=== PATIENT | female | born 1975 | race Hispanic/Latino ===

== ENCOUNTER 2018-05-04 14:16 | Observation (INO) | payer OTHER ==
[~2018-05-04] VITALS: Ht 162.6 cm; Wt 105.7 kg
[~2018-05-04 14:16] MED LIST: HYDROCODON-ACE1 EA10
[2018-05-04 15:51] LABS: BASOPHILS % 0.7 % (0.0-1.0); EOSINOPHILS # (AUTO) 0.1 (0.0-0.4); EOSINOPHILS % 2.9 % (0.0-6.0); HEMATOCRIT 27.8 % (34.2-44.1); HEMOGLOBIN 8.2 g/dL (12.0-16.0); LYMPHOCYTES % 23.7 % (18.0-39.1); MEAN CORPUSCULAR HEMOGLOBIN 20.3 pg (28-32); MEAN CORPUSCULAR HGB CONC 29.5 g/dL (31-35); MEAN CORPUSCULAR VOLUME 68.8 fL (81-99); MONOCYTES # (AUTO) 0.6 (0.2-0.8); MONOCYTES % 14.8 % (4.4-11.3); NEUTROPHILS # (AUTO) 2.4 (2.1-6.9); NEUTROPHILS % 57.9 % (38.7-80.0); PLATELET COUNT 349 x10e3/uL (140-360); RED BLOOD COUNT 4.04 x10e6/uL (3.6-5.1); RED CELL DISTRIBUTION WIDTH 19.5 % (11.7-14.4)
[2018-05-04] MEDS ORDERED: SODIUM CHLORIDE 0.9% 250ML 250 ML IV ONE ×2 (16:00→16:45)
[2018-05-04] MEDS ORDERED: DIPHENHYDRAMINE HCL INJ 50 MG/ML VIAL IV PRN (16:45)
[2018-05-04] MEDS ORDERED: ACETAMINOPHEN 325 MG TAB PO PRN (16:45)
[2018-05-04] MEDS ORDERED: ONDANSETRON HCL INJ 2 MG/ML VIAL IV PRN (16:45)
[2018-05-04 18:18] VITALS: BP 149/67
[2018-05-04 20:00] VITALS: BP 149/88
[2018-05-04] MEDS ORDERED: SODIUM CHLORIDE 0.9% 250ML 250 ML ONE (21:17)
[2018-05-04] MEDS: MORPHINE SULFATE 2 MG/ML SYR IV PRN (22:01)
[2018-05-04 22:38] VITALS: BP 149/88
[2018-05-04 22:48] VITALS: BP 149/88
[2018-05-05] VITALS (7 sets, daily range): BP systolic 138–170; BP diastolic 66–90
[2018-05-05] MEDS: SODIUM CHLORIDE 0.9% 1000ML 1,000 ML IV SCH ×3 (02:26→23:14)
[2018-05-05 05:24] LABS: BASOPHILS % 0.7 % (0.0-1.0); EOSINOPHILS # (AUTO) 0.2 (0.0-0.4); EOSINOPHILS % 3.6 % (0.0-6.0); HEMATOCRIT 29.5 % (34.2-44.1); HEMOGLOBIN 9.1 g/dL (12.0-16.0); LYMPHOCYTES # (AUTO) 1.4 (1.0-3.2); LYMPHOCYTES % 31.8 % (18.0-39.1); MEAN CORPUSCULAR HEMOGLOBIN 21.3 pg (28-32); MEAN CORPUSCULAR HGB CONC 30.8 g/dL (31-35); MEAN CORPUSCULAR VOLUME 68.9 fL (81-99); MONOCYTES # (AUTO) 0.7 (0.2-0.8); MONOCYTES % 15.1 % (4.4-11.3); NEUTROPHILS # (AUTO) 2.2 (2.1-6.9); NEUTROPHILS % 48.6 % (38.7-80.0); PLATELET COUNT 283 x10e3/uL (140-360); RED BLOOD COUNT 4.28 x10e6/uL (3.6-5.1); RED CELL DISTRIBUTION WIDTH 19.6 % (11.7-14.4)
[2018-05-05 05:47] LABS: ALANINE AMINOTRANSFERASE 12 IU/L (0-55); ALBUMIN 3.5 g/dL (3.5-5.0); ALBUMIN/GLOBULIN RATIO 1.2 (0.8-2.0); ALKALINE PHOSPHATASE 51 IU/L (40-150); ANION GAP 9.9 mmol/L (8-16); BLOOD UREA NITROGEN 11 mg/dL (7-26); BUN/CREATININE RATIO 19 (6-25); CALCIUM 8.3 mg/dL (8.4-10.2); CARBON DIOXIDE 27 mmol/L (22-29); CHLORIDE 107 mmol/L (98-107); CREATININE, SERUM 0.59 mg/dL (0.57-1.11); EST GLOMERULAR FILTRATION RATE > 60 ML/MIN (60-); GLUCOSE 88 mg/dL (74-118); POTASSIUM 3.9 mmol/L (3.5-5.1); SODIUM 140 mmol/L (136-145)
[2018-05-05] MEDS ORDERED: ESTROGENS CONJUGATED VAGINAL CR 45 GM TUBE PV ONE (07:00)
[2018-05-05] MEDS ORDERED: BUPIVACAINE 0.5%/EPI 30 ML SDV INJ ONE (07:00)
[2018-05-05] MEDS ORDERED: LACTATED RINGER'S 1,000 ML IV SCH (07:48)
[2018-05-05] MEDS ORDERED: MEPERIDINE HCL INJ 25 MG/ML VIAL IV PRN (08:00)
[2018-05-05] MEDS ORDERED: HYDROCODONE/APAP 10MG-325MG TAB PO PRN (08:00)
[2018-05-05] MEDS ORDERED: KETOROLAC TROMETHAMINE 30 MG/ML VIAL IM PRN (08:00)
[2018-05-05] MEDS ORDERED: SIMETHICONE 80 MG CHEW PO PRN (08:00)
[2018-05-05] MEDS ORDERED: BISACODYL 5 MG TAB EC PO PRN (08:00)
[2018-05-05] MEDS ORDERED: PROMETHAZINE 12.5MG/ NACL 0.9% 50 ML IV PRN (08:00)
[2018-05-05] MEDS ORDERED: ONDANSETRON HCL INJ 2 MG/ML VIAL IV PRN (08:00)
[2018-05-05] MEDS ORDERED: DIPHENHYDRAMINE HCL 25 MG CAP PO PRN (08:00)
[2018-05-05] MEDS ORDERED: PROMETHAZINE HCL (IM) 25 MG/ML VIAL IV PRN (08:00)
[2018-05-05] MEDS ORDERED: HYDROMORPHONE 1MG/1ML INJ ONE (09:54)
[2018-05-05] MEDS ORDERED: FENTANYL CITRATE/PF 100MCG/2 ML INJ ONE ×2 (10:41→17:43)
--- NOTE | 2018-05-05 11:06 | Operative Report ---
DATE OF PROCEDURE: PREOPERATIVE DIAGNOSES 1. Adnexal mass. 2. Menorrhagia. 3. Anemia. POSTOPERATIVE DIAGNOSES 1. Adnexal mass. 2. Menorrhagia. 3. Anemia. PROCEDURES 1. Laparoscopic total hysterectomy. 2. Right salpingo-oophorectomy. COMPLICATIONS: None. ESTIMATED BLOOD LOSS: 50 mL. The patient was taken to the OR, and was prepped and draped in the normal sterile fashion. Placed in the dorsal lithotomy position. Wyman catheter was inserted inside the bladder for drainage. Two accessory ports were placed above the umbilicus, and the supraumbilical skin incision was deepened with the scalpel. A 10 mm bladeless trocar and cannula was passed through the abdominal wound to the abdominal cavity under direct visualization. Trocar was removed. Abdomen was inflated with carbon dioxide gas. The patient was placed in Trendelenburg position, and the scope was slide into the sleeve into the abdominal cavity. Good visualization showed the following: Normal looking uterus, left tube and ovary. Large multi-located ovarian adnexal mass. Adhesions between the pelvic colon and anterior abdominal wall. Adhesions above the umbilicus between the omentum and the anterior abdominal wall due to previous surgeries. Decision was made to conserve the left tube and ovary. Two other ports were made in the right and left lower quadrants after making a 5-mm skin incision with the scalpel. A 5 mm bladeless trocar and cannula was passed through the abdominal wound to the abdominal cavity under direct visualization. Trocar was removed. With the grasper and the LigaSure, the infundibulopelvic on the right side was grasped, cauterized and cut. Multiple bites were done on the right infundibulopelvic close to the adnexa until the round ligament was reached. Using the LigaSure, the vessel was occluded and the pedicle was cut. On the left cornua, the grasper was held. LigaSure was used to occlude the vessels. Round ligament was held. Vessel occluded and cut with the same instrument. The anterior fold of the broad ligament was opened. The bladder fold was created using the LigaSure with small bites to cauterize and cut. With the merchandising assistant pushing the V-Care upwards, the bladder was gently dissected off the anterior wall of the cervix. Following this, the uterine vessels at the level of the V-Care cup was held, cauterized and cut. Using the LigaSure hook, the anterior wall of the vagina was opened in the midline. The incision was extended all the way through the back until the uterus was completely freed. Following this, the completion of the surgery was done from the vagina. The laparoscope was removed keeping the ports still in. The uterus was removed from the vagina using an Allis clamp applied to the cervix and gently pulled intact together with right adnexal mass. The vagina vault was closed vaginally using Vicryl 2-0 suture continuous stitch. Abdomen was reinflated, and the laparoscope was reinserted. It showed good hemostasis. Irrigation of the peritoneal cavity with warm saline. Instruments were removed. The abdomen was deflated. Skin was closed with Vicryl 2-0. Skin was closed with Dermabond at the 3 sites. The patient tolerated the procedure well. Lap and instrument counts were correct times 2 at the end of the procedure. Job#: [id number] [place]
[2018-05-05] MEDS: KETOROLAC TROMETHAMINE 30 MG/ML VIAL IV SCH ×2 (12:30→18:00)
[2018-05-05] MEDS ORDERED: ONDANSETRON HCL INJ 2 MG/ML VIAL ONE (17:39)
[2018-05-05] MEDS ORDERED: KETOROLAC TROMETHAMINE 30 MG/ML VIAL ONE (17:39)
[2018-05-05] MEDS ORDERED: LIDOCAINE HCL 2% LOCAL INJ 5 ML SDV VIAL INJ ONE (17:39)
[2018-05-05] MEDS ORDERED: SEVOFLURANE INHAL SOLN 250 ML PEN BTL ONE (17:39)
[2018-05-05] MEDS ORDERED: ROCURONIUM BROMIDE 10 MG/ML 5ML VIAL ONE (17:39)
[2018-05-05] MEDS ORDERED: ACETAMINOPHEN 1000 MG/100 ML IV ONE (17:39)
[2018-05-05] MEDS ORDERED: DEXAMETHASONE SOD PHOS INJ 4 MG/ML VIAL ONE (17:39)
[2018-05-05] MEDS ORDERED: PROPOFOL IV EMULSION 10 MG/ML 20 ML VIAL ONE (17:39)
[2018-05-05] MEDS ORDERED: MIDAZOLAM HCL 2 MG/2 ML VIAL ONE (17:43)
[2018-05-05] MEDS: MORPHINE SULFATE 2 MG/ML SYR IV PRN ×2 (19:13→23:14)
[2018-05-05] MEDS ORDERED: ZOLPIDEM TARTRATE 5 MG TAB PO PRN (21:00)
[2018-05-06] VITALS: BP 128/60
[2018-05-06] MEDS: KETOROLAC TROMETHAMINE 30 MG/ML VIAL IV SCH ×2 (00:47→06:10)
[2018-05-06 04:00] VITALS: BP 156/74
[2018-05-06 05:41] LABS: BASOPHILS % 0.3 % (0.0-1.0); EOSINOPHILS # (AUTO) 0.1 (0.0-0.4); EOSINOPHILS % 0.8 % (0.0-6.0); HEMATOCRIT 29.2 % (34.2-44.1); HEMOGLOBIN 8.7 g/dL (12.0-16.0); LYMPHOCYTES # (AUTO) 1.3 (1.0-3.2); LYMPHOCYTES % 20.8 % (18.0-39.1); MEAN CORPUSCULAR HGB CONC 29.8 g/dL (31-35); MEAN CORPUSCULAR VOLUME 70.5 fL (81-99); MONOCYTES # (AUTO) 0.7 (0.2-0.8); MONOCYTES % 11.3 % (4.4-11.3); NEUTROPHILS # (AUTO) 4.1 (2.1-6.9); NEUTROPHILS % 66.5 % (38.7-80.0); PLATELET COUNT 305 x10e3/uL (140-360); RED BLOOD COUNT 4.14 x10e6/uL (3.6-5.1); RED CELL DISTRIBUTION WIDTH 19.9 % (11.7-14.4)
[2018-05-06] MEDS: SODIUM CHLORIDE 0.9% 1000ML 1,000 ML IV SCH (07:15)
[2018-05-06 08:00] VITALS: BP_SYST 156; BP_SYST 94; BP_DIAS 56; BP_DIAS 83
[2018-05-06 08:15] VITALS: BP 156/83
[2018-05-06] MEDS: MORPHINE SULFATE 2 MG/ML SYR IV PRN (08:17)
[2018-05-06] MEDS ORDERED: TYLENOL WITH C1 EACH PO (10:19)
[2018-05-06] MEDS ORDERED: COLACE100 MG PO (10:20)
== END 2018-05-06 10:35 | disposition home or self-care (01) ==
LOC: ER 14:16 → ERHOLD 16:53 → MED/SURG3 18:10
PROVIDERS: ADMIT Obstetrics & Gynecology; ATTEND Obstetrics & Gynecology
DX: D25.0 Submucous leiomyoma of uterus (principal); N93.8 Other specified abnormal uterine and vaginal bleeding; D62 Acute posthemorrhagic anemia; N92.0 Excessive and frequent menstruation with regular cycle; E27.8 Other specified disorders of adrenal gland; N72 Inflammatory disease of cervix uteri; D25.2 Subserosal leiomyoma of uterus
CPT/HCPCS: 36415 ×3; 36430; 58571; 80053; 85025 ×3; 86850; 86900; 86920; 88307; 96361; 99284; G0378 ×3; J1100; J1170; J1885 ×2; J2001; J2250; J2270 ×3; J2405 ×3; J7030 ×2; J7050; P9016; J2175

== ENCOUNTER 2018-07-24 21:47 | Observation (INO) | payer OTHER ==
[~2018-07-24] VITALS: Ht 167.6 cm; Wt 104.1 kg
[~2018-07-24 21:47] MED LIST changes: +COLACE100 MG PO; +TYLENOL WITH C1 EACH PO
[2018-07-24] MEDS ORDERED: FAMOTIDINE 20 MG/2 ML VIAL IV STA (22:07)
[2018-07-24] MEDS ORDERED: SODIUM CHLORIDE 0.9% 1000ML 1,000 ML IV STA (22:07)
[2018-07-24] MEDS ORDERED: METHYLPREDNISOLONE SOD SUCC 125 MG/2ML VIAL IV STA (22:07)
[2018-07-24] MEDS ORDERED: DIPHENHYDRAMINE HCL INJ 50 MG/ML VIAL IV ONE (22:15)
[2018-07-24 22:26] LABS: BASOPHILS % 0.6 % (0.0-1.0); EOSINOPHILS % 0.4 % (0.0-6.0); HEMATOCRIT 34.8 % (34.2-44.1); HEMOGLOBIN 10.8 g/dL (12.0-16.0); LYMPHOCYTES # (AUTO) 0.8 (1.0-3.2); LYMPHOCYTES % 15.6 % (18.0-39.1); MEAN CORPUSCULAR HEMOGLOBIN 23.2 pg (28-32); MEAN CORPUSCULAR VOLUME 74.7 fL (81-99); MONOCYTES # (AUTO) 0.3 (0.2-0.8); MONOCYTES % 7.1 % (4.4-11.3); NEUTROPHILS # (AUTO) 3.7 (2.1-6.9); NEUTROPHILS % 76.1 % (38.7-80.0); PLATELET COUNT 278 x10e3/uL (140-360); RED BLOOD COUNT 4.66 x10e6/uL (3.6-5.1); RED CELL DISTRIBUTION WIDTH 19.9 % (11.7-14.4)
[2018-07-24 22:31] LABS: BACTERIA,URINE MODERATE /HPF; BILIRUBIN,URINE NEGATIVE (NEGATIVE); CLARITY,URINE CLOUDY (CLEAR); COLOR,URINE YELLOW (YELLOW); EPITHELIAL CELLS,URINE FEW /LPF; KETONES,URINE 3+ (NEGATIVE); LEUKOCYTE ESTERASE ,URINE 2+ (NEGATIVE); MUCUS,URINE FEW (RARE); NITRITE,URINE NEGATIVE (NEGATIVE); PROTEIN,URINE DIPSTICK TRACE (NEGATIVE); RBC,URINE >50 /HPF (0-5); URINE UROBILINOGEN 0.2 mg/dL (0.2 - 1); WBC,URINE (MAN) 21-50 /HPF (0-5)
[2018-07-24 22:34] LABS: INR 0.91; PROTHROMBIN TIME 13.1 seconds (11.9-14.5)
[2018-07-24 22:35] LABS: PARTIAL THROMBOPLASTIN TIME 28.8 seconds (23.8-35.5)
--- NOTE | 2018-07-24 22:41 | Diagnostic Imaging Report ---
EXAM: CHEST SINGLE (PORTABLE), AP 1 view INDICATION: Numbness, tingling in both feet COMPARISON: None FINDINGS: LINES/TUBES: None LUNGS: No consolidations or edema. PLEURA: No effusions or pneumothorax. HEART AND MEDIASTINUM: Normal size and contour. BONES AND SOFT TISSUES: No acute findings. IMPRESSION: No acute thoracic abnormality. Signed by: Dr. Chelsea Blackburn M.D. on 07/24/2018 10:38 PM
--- NOTE | 2018-07-24 22:41 | Diagnostic Imaging Report ---
EXAMINATION: Head CT without contrast. HISTORY:Numbness and tingling in both upper and lower extremities. COMPARISON:None. TECHNIQUE: Multidetector axial images were obtained from the foramen magnum to the vertex without contrast. The images were reconstructed using brain and bone algorithms. Thin section brain images were reformatted into coronal and sagittal planes. Dose modulation, iterative reconstruction, and/or weight based adjustment of the mA/kV was utilized to reduce the radiation dose to as low as reasonably achievable. Intravenous contrast: None IMAGE QUALITY: Acceptable. FINDINGS: Skull/scalp: No lytic or blastic. lesions. No surgical changes. Parenchyma: No abnormal density. No acute hemorrhage, mass or acute major vascular territorial infarct. Arteries: No density suggestive of thrombosis. Dural sinuses: No abnormal density suggestive of thrombosis. Ventricles: No hydrocephalus or displacement. Extra-axial spaces: Posterior fossa, retrocerebellar cystic lesion with internal septation and regional mass effect represents an arachnoid cyst vs lauren cisterna magna Brain volume: Normal for age. Craniocervical junction: No mass, Chiari malformation, or basilar invagination. Sella: No mass. Paranasal/mastoid sinuses: Imaged portions unremarkable. IMPRESSION: No acute intracranial abnormality. Signed by: Dr. Faina Mendoza M.D. on 07/24/2018 10:37 PM
[2018-07-24 22:44] LABS: ALANINE AMINOTRANSFERASE 14 IU/L (0-55); ALBUMIN 4.1 g/dL (3.5-5.0); ALBUMIN/GLOBULIN RATIO 1.2 (0.8-2.0); ALKALINE PHOSPHATASE 64 IU/L (40-150); ANION GAP 20.3 mmol/L (8-16); BLOOD UREA NITROGEN 12 mg/dL (7-26); BUN/CREATININE RATIO 17 (6-25); CALCIUM 8.9 mg/dL (8.4-10.2); CARBON DIOXIDE 18 mmol/L (22-29); CHLORIDE 106 mmol/L (98-107); CREATINE KINASE 106 IU/L (29-168); CREATININE, SERUM 0.72 mg/dL (0.57-1.11); EST GLOMERULAR FILTRATION RATE > 60 ML/MIN (60-); GLUCOSE 100 mg/dL (74-118); POTASSIUM 3.3 mmol/L (3.5-5.1); SODIUM 141 mmol/L (136-145)
[2018-07-24 23:04] LABS: THYROID STIMULATING HORMONE 0.829 uIU/mL (0.350-4.940)
[2018-07-24 23:16] LABS: PREGNANCY TEST, URINE NEGATIVE (NEGATIVE)
[2018-07-24] MEDS ORDERED: POTASSIUM CHLORIDE 20 MEQ TAB CR PO STA (23:31)
[2018-07-25] VITALS (7 sets, daily range): BP systolic 99–135; BP diastolic 56–79
[2018-07-25] MEDS ORDERED: ONDANSETRON HCL INJ 2 MG/ML VIAL IV PRN (00:15)
[2018-07-25] MEDS: CEFTRIAXONE SOD 1 GM VIAL IV SCH ×3 (00:15→23:28)
[2018-07-25] MEDS ORDERED: ACETAMINOPHEN 325 MG TAB PO PRN (00:15)
[2018-07-25] MEDS: SODIUM CHLORIDE 0.9% 1000ML 1,000 ML IV SCH ×4 (03:15→19:53)
[2018-07-25] MEDS ORDERED: POTASSIUM CHLORIDE 20 MEQ TAB CR PO ONE (05:00)
--- NOTE | 2018-07-25 10:57 | History and Physical ---
This is a 42-year-old female who comes in with paresthesias and numbness in the right arm and all extremities. HISTORY OF PRESENTING ILLNESS: This is Ms. Agustin Resendiz, 42-year-old lady with a history of peripheral neuropathy in the past, has been in her usual state of health until the patient started to feel paresthesias, more exaggerated hyperesthesias in the right upper and right lower, left upper and left lower extremities, glove and stocking pattern. Now, the patient did not want to go to sleep and wake up paralyzed, came into the emergency room, was found to have urinary tract infection, and was admitted for UTI, dehydration, polyneuropathy, and hypokalemia. PAST MEDICAL HISTORY: History of frequent urinary tract infection as mentioned above, polyneuropathy. SURGICAL HISTORY: History of , history of hysterectomy, history of gastric bypass, and also hysterectomy as mentioned above. MEDICATIONS: No medicines at home, seen by primary care physician in [place]. REVIEW OF SYSTEMS: Negative for chest pain. No shortness of breath. No nausea, vomiting, diarrhea. No constipation. No irregular bleeding or hematochezia. No hematemesis. PHYSICAL EXAMINATION GENERAL: Patient is alert and oriented x3. VITAL SIGNS: Temperature is 97.4, blood pressure is 124/68, normal pulse oximetry at 100%. HEENT: Normocephalic, atraumatic. Pupils are react to light and accommodation. CVS: S1, S2 normal. Regular rate and rhythm. ABDOMEN: Nontender, nondistended. EXTREMITIES: No clubbing, no cyanosis, and no edema. NEUROLOGIC: Hyperesthesias and tenderness and now decreased sensation in the upper extremities and the lower extremities to glove and stocking pattern. MICROBIOLOGY: Urine culture is pending. LABORATORY VALUES: His white count is 4.8, hemoglobin of 10.8, hematocrit of 34.8, and platelet count is 278. Chemistries were sodium of 141, potassium of 3.3, CO2 was 18. TSH was 0.89. Coags were normal. Urine shows 3+ ketones, 4+ blood, urine leukocyte 2+, rbc's 150, urine bacteria was moderate. IMAGING STUDIES: Brain CT was done for neurological changes, no acute intracranial abnormalities were noted. Chest x-ray shows no acute abnormalities either. ASSESSMENT 1. Pyelonephritis. 2. Hyperesthesias or polyneuropathy. 3. Hypokalemia and dehydration. PLAN: Continue hydration for the patient. Check B12 levels and sed rate. We will continue to monitor the patient. Continue with antibiotics. Further recommendations per clinical course. Job#: [id number] LADY
[2018-07-25] MEDS: GABAPENTIN 100 MG CAP PO SCH ×2 (14:00→17:00)
--- NOTE | 2018-07-25 16:54 | Consultation ---
DATE OF CONSULTATION: July 25, 2018 NEUROLOGY CONSULT HISTORY OF PRESENT ILLNESS: Ms. Velez is a 42-year-old right-hand dominant woman without significant past medical history, admitted to [facility] early in the morning of July 25, 2018 for multiple symptoms. At approximately 1700 on July 24, 2018, the patient developed the gradual onset of numbness in both hands, right before left, which radiated proximally to the elbows. Shortly thereafter, the patient developed numbness and tingling over both feet; however, the patient reports experiencing numbness and tingling over the soles of both feet for months. She further describes the pain as burning. The pain is worsened by standing for prolonged period of time and walking. Nothing improves the pain. After the above symptoms persisted for a few hours, the patient presented to the emergency center at [facility] for further evaluation. Upon arrival in the emergency center, the patient was afebrile with a blood pressure of 167/100 mmHg and a pulse of 101 beats per minute. Her neurological examination was documented as showing diminished sensation in a stocking and glove distribution. Otherwise, the neurological examination was nonfocal. Routine laboratory data revealed the presence of urinary tract infection. Ms. Velez was found to be hypokalemic and dehydrated as well. A CT of the brain without contrast performed in the emergency center did not show evidence of recent large territorial ischemia or hemorrhage. Ms. Velez was admitted to [facility] under observation status for further evaluation and treatment. Ms. Velez reports the symptoms in her hands and forearms have resolved. The burning pain, tingling, and numbness over the soles of her feet is unchanged. The patient does report mild right-sided low back pain for several months. Ms. Velez recently stopped taking tramadol as treatment for this pain. She does not report weakness in any of her extremities or bladder/bowel dysfunction. REVIEW OF SYSTEMS: Numbness/tingling of the hands, forearms, and feet. Chronic low back pain. Otherwise, the 12-point review of systems is negative. PAST MEDICAL HISTORY: Multiple urinary tract infections, anemia, obesity. PAST SURGICAL HISTORY: Partial hysterectomy/right oophorectomy. section. Cholecystectomy. Gastric sleeve. PAST HOSPITALIZATIONS: Surgeries/procedures as listed, childbirth x4. FAMILY MEDICAL HISTORY: The patient's paternal grandparents are . Their medical histories are unknown. The patient's maternal grandparents are . The maternal grandfather's medical history is unknown. The patient's maternal grandmother had hypertension, hyperlipidemia, diabetes mellitus type 2, and arthritis. Ms. Velez does not know her father. Her mother is alive and has hypertension. The patient has no siblings. Ms. Velez has 4 children, 1 daughter and 3 sons, all of whom are alive and healthy. SOCIAL HISTORY: The patient is . She works in retail/sales. Ms. Velez does not report current or prior tobacco, alcohol, or recreational drug use. HOME MEDICATIONS: Iron supplement daily. ALLERGIES: NO KNOWN DRUG ALLERGIES. NO KNOWN FOOD ALLERGIES. NO KNOWN ALLERGIES TO LATEX. NO KNOWN ALLERGIES TO IODINE OR OTHER CONTRAST MATERIALS. PHYSICAL EXAMINATION VITAL SIGNS: Height 66 inches, weight 225 pounds, BMI 36.3 kg/m2. Blood pressure 132/70 mmHg, pulse 75 beats per minute, respiratory rate 20 breaths per minute. Oxygen saturation 97% on room air. GENERAL: The patient is awake and alert, does not appear distressed. Obese. HEENT: Normocephalic, atraumatic. Pupils are equal, round, and reactive to light. Moist mucous membranes. NECK: Supple. No appreciable thyromegaly. No appreciable carotid bruits. CARDIOVASCULAR: S1, S2, regular rate and rhythm. A low-grade systolic ejection murmur is appreciated. RESPIRATORY: Clear to auscultation bilaterally. No wheezes, rhonchi, or rales. EXTREMITIES: The skin is warm and dry. No clubbing, cyanosis, or edema. The posterior tibial and dorsalis pedis pulses are 2+ and symmetric. SKIN: No rashes or lesions. NEUROLOGIC MEMORY/ATTENTION: The patient is awake and alert, oriented to person, place time, and situation. CRANIAL NERVES: Cranial nerve I - Not tested. Cranial nerve II, III, IV, and - Pupils are equal and round, react briskly to light (from 4 mm to 2 mm). Extraocular movements intact. No nystagmus. Cranial nerve V - Sensation to light touch and pinprick is intact in the bilateral V1 through V3 distributions. Strength of the temporalis and masseter muscles is within normal limits. Cranial nerve VII - The face is symmetric as are all facial movements. Strength is within normal limits. Cranial nerve VIII - Hearing is intact to finger rub bilaterally. Cranial nerve IX, X - The soft palate elevates equally and symmetrically. Cranial nerve XI - Normal strength of the bilateral sternocleidomastoid and trapezius muscles. Cranial nerve XII - The tongue protrudes midline and moves symmetrically from side to side. STRENGTH: Bulk is normal. Strength is 5/5 in the bilateral deltoids, biceps, triceps, wrist flexors and extensors, finger flexors and extensors, intrinsic hand muscles, hip flexors, knee flexors and extensors, ankle dorsiflexion and plantar flexion, and intrinsic foot muscles. Tone is normal. DTRs: Deep tendon reflexes are 2+ and symmetric at the triceps, biceps, brachioradialis, and patellas. Deep tendon reflexes are absent and symmetric at the Achilles. Plantar responses are flexor bilaterally. SENSATION: Sensation is intact to light touch and pinprick in both arms and both legs. CEREBELLAR: Praiwi-buya-dxkdeu and heel-fontana movements are intact without dysmetria or other impairment. GAIT: Deferred. SPEECH: Spontaneous speech is normal without appreciable dysarthria or aphasia. Repetition is intact. INVOLUNTARY MOVEMENTS: None. PRONATOR DRIFT: None. LABORATORY DATA: The patient's comprehensive metabolic panel is significant for potassium of 3.3, carbon dioxide of 18, anion gap of 20.3. Cardiac enzymes are negative x1. TSH 0.829. Vitamin B12 level greater than 2000. Vitamin B1 and vitamin B6 levels are pending. The CBC with differential and platelets reveals a white blood cell count of 4.80 with 76.1% neutrophils, 15.6% lymphocytes, 7.1% monocytes, 0.4% eosinophils, and 0.6% basophils. The hemoglobin and hematocrit are 10.8 and 34.8, respectively. The platelet count is 278. The coagulation profile is within normal limits. Urinalysis reveals cloudy urine with trace protein, 3+ ketones, 4+ blood, 2+ leukocyte esterase, greater than 50 red blood cells, 21 to 50 white blood cells, moderate urine bacteria. A urine culture was collected on July 24, 2018 and reveals no growth after 1 day. DIAGNOSTIC STUDIES 1. Electrocardiogram on 07/24/2018: Normal sinus rhythm at 88 beats per minute. 2. Chest x-ray on 07/24/2018: No acute thoracic abnormality. 3. CT of the brain without contrast on 07/24/2018: On my review, there is no evidence of recent large territorial ischemia, hemorrhage, mass, or mass effect. Cerebral volumes are appropriate for age. There are no findings suggestive of chronic small vessel ischemic disease. ASSESSMENT AND PLAN: Ms. Velez is a 42-year-old right-hand dominant woman without significant past medical history, admitted to [facility] with dehydration, hypokalemia, urinary tract infection, and symptoms compatible with peripheral neuropathy. The patient's neurological examination is significant only for absent deep tendon reflexes at the Achilles bilaterally. Her laboratory data and other diagnostic studies have been reviewed and are documented above. As stated above, Ms. Velez's symptoms are most compatible with a peripheral neuropathy. The etiology of this peripheral neuropathy is unknown at present. In regards to the symptoms affecting the patient's hands and forearms, these probably represent bilateral median neuropathies at the wrists. Individuals with peripheral neuropathy may be at a higher risk for the development of compression mononeuropathies. RECOMMENDATIONS 1. Additional blood and urine studies will be ordered to evaluate for underlying treatable causes of peripheral neuropathy. 2. Ms. Velez will be prescribed gabapentin 100 mg by mouth twice daily for symptomatic treatment. 3. The patient may follow up as an outpatient for further evaluation and treatment of her symptoms. 4. Defer treatment of the remaining medical comorbidities to the primary and other services following the patient. Thank you for this consultation. I will continue to follow the patient while she remains in the hospital. TIME SPENT: 70 minutes. Job#: [id number] MAJ MOON
[2018-07-26] VITALS: BP 105/59
[2018-07-26 04:00] VITALS: BP 114/67
[2018-07-26] MEDS: SODIUM CHLORIDE 0.9% 1000ML 1,000 ML IV SCH (06:04)
[2018-07-26 06:43] LABS: BASOPHILS % 0.6 % (0.0-1.0); EOSINOPHILS # (AUTO) 0.1 (0.0-0.4); EOSINOPHILS % 2.8 % (0.0-6.0); HEMATOCRIT 31.3 % (34.2-44.1); HEMOGLOBIN 9.5 g/dL (12.0-16.0); LYMPHOCYTES # (AUTO) 1.3 (1.0-3.2); MEAN CORPUSCULAR HEMOGLOBIN 23.1 pg (28-32); MEAN CORPUSCULAR HGB CONC 30.4 g/dL (31-35); MEAN CORPUSCULAR VOLUME 76.2 fL (81-99); MONOCYTES # (AUTO) 0.4 (0.2-0.8); MONOCYTES % 10.5 % (4.4-11.3); NEUTROPHILS # (AUTO) 1.7 (2.1-6.9); NEUTROPHILS % 47.8 % (38.7-80.0); PLATELET COUNT 236 x10e3/uL (140-360); RED BLOOD COUNT 4.11 x10e6/uL (3.6-5.1); RED CELL DISTRIBUTION WIDTH 20.6 % (11.7-14.4)
[2018-07-26 07:09] LABS: ALANINE AMINOTRANSFERASE 9 IU/L (0-55); ALBUMIN 3.2 g/dL (3.5-5.0); ALBUMIN/GLOBULIN RATIO 1.3 (0.8-2.0); ALKALINE PHOSPHATASE 43 IU/L (40-150); ANION GAP 9.8 mmol/L (8-16); BLOOD UREA NITROGEN < 5 mg/dL (7-26); CALCIUM 7.9 mg/dL (8.4-10.2); CARBON DIOXIDE 25 mmol/L (22-29); CHLORIDE 111 mmol/L (98-107); CREATININE, SERUM 0.54 mg/dL (0.57-1.11); EST GLOMERULAR FILTRATION RATE > 60 ML/MIN (60-); GLUCOSE 92 mg/dL (74-118); POTASSIUM 3.8 mmol/L (3.5-5.1); SODIUM 142 mmol/L (136-145)
[2018-07-26 07:14] LABS: BUN/CREATININE RATIO 9 (6-25)
[2018-07-26 07:53] VITALS: BP 126/69
[2018-07-26] MEDS: GABAPENTIN 100 MG CAP PO SCH (09:25)
[2018-07-26] MEDS ORDERED: GABAPENTIN100 MG PO (09:38)
[2018-07-26] MEDS ORDERED: AUGMENTIN 875-1 EACH PO (09:39)
== END 2018-07-26 10:00 | disposition home or self-care (01) ==
LOC: ER 21:47 → ERHOLD 07-25 00:09 → MED/SURG3 07-25 03:09
PROVIDERS: ADMIT Family Medicine; ATTEND Family Medicine
DX: N10 Acute pyelonephritis (principal); G62.9 Polyneuropathy, unspecified; E87.6 Hypokalemia; E86.0 Dehydration; Z87.440 Personal history of urinary (tract) infections; D64.9 Anemia, unspecified; R31.29 Other microscopic hematuria; E66.9 Obesity, unspecified; Z68.36 Body mass index [BMI] 36.0-36.9, adult
CPT/HCPCS: 36415 ×3; 70450; 71045; 80053 ×2; 81001; 81025; 82550; 82553; 82607; 82746; 83036; 83735; 84165; 84207; 84425; 84443; 84484; 85025 ×2; 85610; 85651; 85730; 86039; 86235; 86431; 86592; 87086; 93005; 96374; 96375; 99284; G0378 ×2; J0696 ×2; J1200; J2930; J7030 ×2

== ENCOUNTER 2023-04-17 23:17 | Emergency (ER) | payer BC, OTHER ==
[~2023-04-17] VITALS: Ht 167.6 cm; Wt 103.9 kg
[~2023-04-17 23:17] MED LIST changes: +AUGMENTIN 875-1 EACH PO; +GABAPENTIN100 MG PO
[2023-04-18] MEDS ORDERED: ONDANSETRON HCL INJ 2MG/ML 2ML 2 MG/ML VIAL IV STA (00:04)
[2023-04-18 00:09] LABS: BASOPHILS % 0.3 % (0.0-1.0); EOSINOPHILS # (AUTO) 0.1 (0.0-0.4); EOSINOPHILS % 1.7 % (0.0-6.0); HEMATOCRIT 48.5 % (34.2-44.1); HEMOGLOBIN 16.2 g/dL (12.0-16.0); LYMPHOCYTES # (AUTO) 0.5 (1.0-3.2); LYMPHOCYTES % 8.1 % (18.0-39.1); MEAN CORPUSCULAR HEMOGLOBIN 28.7 pg (28-32); MEAN CORPUSCULAR HGB CONC 33.4 g/dL (31-35); MEAN CORPUSCULAR VOLUME 85.8 fL (81-99); MONOCYTES # (AUTO) 0.8 (0.2-0.8); NEUTROPHILS # (AUTO) 4.6 (2.1-6.9); NEUTROPHILS % 76.2 % (38.7-80.0); PLATELET COUNT 294 x10e3/uL (140-360); RED BLOOD COUNT 5.65 x10e6/uL (3.6-5.1); RED CELL DISTRIBUTION WIDTH 13.2 % (11.7-14.4)
[2023-04-18] MEDS ORDERED: SODIUM CHLORIDE 0.9% 1000ML 1,000 ML IV ONE ×2 (00:15→02:00)
[2023-04-18 00:31] LABS: ALBUMIN 4.1 g/dL (3.5-5.0); ALBUMIN/GLOBULIN RATIO 0.9 (0.8-2.0); ANION GAP 15.1 mmol/L (8-16); CALCIUM 7.9 mg/dL (8.4-10.2); CREATININE, SERUM 1.01 mg/dL (0.57-1.11); POTASSIUM 3.1 mmol/L (3.5-5.1)
[2023-04-18] MEDS ORDERED: POTASSIUM CHLORIDE 20 MEQ TAB CR PO STA (00:56)
[2023-04-18 01:26] LABS: CLARITY,URINE SL CLOUDY (CLEAR); COLOR,URINE YELLOW (YELLOW); KETONES,URINE NEGATIVE (NEGATIVE); LEUKOCYTE ESTERASE ,URINE NEGATIVE (NEGATIVE); NITRITE,URINE NEGATIVE (NEGATIVE); PROTEIN,URINE DIPSTICK 2+ (NEGATIVE); URINE UROBILINOGEN 0.2 mg/dL (0.2 - 1)
[2023-04-18 01:36] LABS: BACTERIA,URINE FEW /HPF; EPITHELIAL CELLS,URINE MANY /LPF; RBC,URINE 0-5 /HPF (0-5); WBC,URINE (MAN) 0-5 /HPF (0-5)
[2023-04-18 01:37] LABS: AMORPHOUS SEDIMENT,URINE MODERATE (FEW)
[2023-04-18] MEDS ORDERED: PANTOPRAZOLE SO40 MG PO (01:52)
[2023-04-18] MEDS ORDERED: ONDANSETRON ODT4 MG PO (01:52)
[2023-04-18 03:08] VITALS: BP 153/96; PULSE 84; RESP 16; TEMP 97.9; O2SAT 98
== END 2023-04-18 03:00 | disposition home or self-care (01) ==
LOC: ER 23:20
DX: R50.9 Fever, unspecified (principal); A08.4 Viral intestinal infection, unspecified; R11.2 Nausea with vomiting, unspecified; E87.6 Hypokalemia; E86.0 Dehydration; D64.9 Anemia, unspecified; G62.9 Polyneuropathy, unspecified; Z98.84 Bariatric surgery status
CPT/HCPCS: 36415; 80053; 81001; 83690; 85025; 99284; C9113; J2405; J7030